=== PATIENT | female | born 1990 | race Hispanic/Latino ===

== ENCOUNTER 2024-08-31 08:13 | Emergency (ER) | payer SELFPAY ==
[2024-08-31 08:14] VITALS: BP 135/81
--- NOTE | 2024-08-31 09:01 | ED.GENMED ---
History of Present Illness
General
Chief Complaint: Musculo-Skeletal Complaint
Source: patient
Time Seen by Provider: 08/31/24 08:55
History of Present Illness
History of Present Illness:
33-year-old female with no significant past medical history presents to the emergency department for evaluation of left-sided neck pain that began yesterday upon awakening, today had decreased range of motion prompting her to come to the ER for
further treatment. Patient states no trauma to the affected area, denies any fevers or infectious symptoms, no focal weakness or numbness. Denies any history of similar. She did not attempt any medications for relief prior to arrival.
Past History
Past History
ED Past Medical History: None
ED Past Surgical History: None
Social History
Tobacco: Non-smoker
Alcohol: None
Drug: None
Personal:
Living: with family
Employment: Employed
Review of Systems
Review of Systems
All Other Systems: ROS reviewed and negative except as documented in HPI and ROS
Phy Exam
Physical Exam
Physical Exam:
GENERAL: Alert , in no apparent distress
EYE: conjunctiva clear
Head: Normocephalic atraumatic
NECK: Supple, there is clearly reproducible spasm and tenderness within the left paracervical musculature extending down towards the trapezius and along the medial border of the scapula. Patient has significantly limited range of motion with
lateral rotation as well as flexion and extension. No midline tenderness
ENT: mmm.
LUNGS: no acute respiratory distress
NEUROLOGICAL: Alert and oriented
SKIN: Warm and dry, skin intact.
MUSCULOSKELETAL: well perfused.
PSYCH: Normal and appropriate interaction.
Scores
Heart Failure Risk
Heart Failure Risk Score: Not Applicable
Heart Score for Chest Pain Patients
STEMI patient?: Not applicable
Withdrawal Assessment of Alcohol
Withdrawal Assessment Completed?: Not applicable
Course
Orders/Labs/Results
Orders:
Orders
08/31/24 09:00
Diazepam [Valium] 5 mg PO NOW STA
Ibuprofen [Motrin] 600 mg PO NOW STA
Lidocaine [Lidocaine 4% Patch] 1 patch TOPICAL NOW STA
Apply Lidocaine patch(s) to:: left lateral neck
Vital Signs
Initial and Last Documented VS:
Initial Vital Signs
Temp Pulse Resp BP Pulse Ox
98.3 F 84 16 135/81 96
08/31/24 08:14 08/31/24 08:14 08/31/24 08:14 08/31/24 08:14 08/31/24 08:14
Last Documented Vital Signs
Temp Pulse Resp BP Pulse Ox
98.3 F 84 16 135/81 96
08/31/24 08:14 08/31/24 08:14 08/31/24 08:14 08/31/24 08:14 08/31/24 08:14
MDM/Problems Addressed
Differential Diagnosis Includes:
Torticollis, no trauma to suspect fracture, disc herniation/nerve impingement, no symptoms to suggest infectious etiology
MDM/Problems Addressed:
33-year-old female presenting to the ER with atraumatic neck pain and decreased range of motion, gradually worse over the last 24 hours. Did not attempt medications prior to arrival. Patient with significantly limited range of motion. Suspect
spasmodic torticollis to be the most likely diagnosis. Will treat with anti-inflammatories, muscle relaxant and topical agents. Advised use of heating pad as well. Patient otherwise stable for discharge home. Aware of return precautions.
*Pulse Oximetry
Patient hypoxic: no
*Critical Care Note
Total Time (30-74mins, 75-104mins- exclusive of procedures): Not Applicable
Data Reviewed
Further Testing Considered But Not Given:
Considered x-ray imaging however given no ports of trauma did not feel this would be likely to change patient's disposition
ED Attending Note
-
Portions of this chart may have been created with voice recognition software.� Occasional wrong word or��sound alike� substitutions may have occurred due to the inherent limitations of voice recognition software.
Discharge Plan
Departure
Patient Disposition: Home (Routine Discharge)
Date of Disposition: 08/31/24
Time of Disposition: 09:01
Patient with high blood pressure during this ER visit?: No
Discharge Problem:
Acute torticollis
Instructions: Torticollis (DC)
Prescriptions:
New
naproxen 500 mg tablet
500 mg PO BID PRN (Reason: Pain) Qty: 15 0RF
diazepam [Valium] 5 mg tablet
5 mg PO BID PRN (Reason: muscle spasm) Qty: 6 0RF
Stand Alone Forms: Return to Work
Discharge Date and Time
Print Language: PASHTO
[2024-08-31] MEDS: LIDOCAINE 4% PATCH 1 PATCH TOPICAL (09:10)
[2024-08-31] MEDS: MOTRIN 600 MG PO (09:10)
[2024-08-31] MEDS: VALIUM 5 MG PO (09:10)
== END 2024-08-31 09:10 | disposition home or self-care (01) ==
LOC: EMR 08:13
PROVIDERS: EMERGENCY PHYSICIAN Emergency Medicine
DX: M43.6 Torticollis (principal)
CPT/HCPCS: 99283